=== PATIENT | female | born 1950 | race Caucasian/White ===

== ENCOUNTER 2017-12-30 05:20 | Day surgery (SDC) | payer MEDICARE, OTHER ==
[2017-12-29 09:31] LABS: HEMATOCRIT 38.6 % (36.0-48.0); MCH 30.2 pg (26.0-34.0); MCHC 33.7 g/dL (31.0-37.0); MCV 89.8 fL (80.0-100.0); MEAN PLATELET VOLUME 10.2 fL (7.4-10.4); RBC 4.3 10x6/uL (4.00-5.40); RDW 12.3 % (11.5-14.5); WBC 5.1 10x3/uL (4.8-10.8)
[~2017-12-30] VITALS: Ht 160 cm; Wt 87.1 kg
--- NOTE | ~2017-12-30 | OP ---
PATIENT NAME: BROOKE GARG MEDICAL RECORD: [id number] :54 LOCATION:D.OPS ADMISSION DATE: SURGEON: LIZA CERNA MD DATE OF OPERATION: 12/30/2017 PREOPERATIVE DIAGNOSIS: Medial meniscus tear of the right knee. POSTOPERATIVE DIAGNOSES: Medial meniscus tear of the right knee. 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 PROCEDURE: Arthroscopic partial medial meniscectomy. SURGEON: Liza Cerna MD ANESTHESIA: General. INTRAOPERATIVE COMPLICATIONS: None. SUMMARY OF PATHOLOGIC FINDINGS: Unfortunately, the patient had a nasty articular cartilage defect on the femoral side only likely caused by the meniscal tear. This was treated with a gentle chondroplasty. Intraoperative photos were taken. OPERATIVE SUMMARY IN DETAIL: After obtaining the appropriate preoperative orthopedic surgery consent as well as anesthetic consultation, evaluation, and clearance, the patient was brought to the operating room and placed on the operating table in supine position. After general laryngeal mask airway was administered, tourniquet was placed on the proximal aspect of the right lower extremity. Right lower extremity was then prepped and draped in routine sterile fashion. The leg was elevated and exsanguinated, tourniquet was inflated to 350 mmHg. Routine inferolateral portal was established followed by superior medial portal and inferomedial portal. Diagnostic arthroscopy did show the patient had the above findings. Attention was first turned to the medial meniscus tear. Combination of an arthroscopic resector along with a meniscotome was utilized to debride the posterior lateral aspect of the medial meniscus back to stable meniscal elements. There was a tear at the root, but the root was not torn from the bone. After debriding the meniscus, leaving a good portion of the meniscus intact, attention was turned to the medial femoral condylar defect. The torpedo resector was utilized to smoothen the edges and take away any loose cartilaginous flaps in attempts to make this more stable chondral defect. Again, intraoperative photos were taken using the scope. Having completed this, the knee was insufflated with 30 mL of 0.25% Marcaine with epinephrine and 80 mg of Depo-Medrol. Arthroscopy portals were closed in routine interrupted fashion using 4-0 Prolene. Sterile dressings were applied. The patient was awakened and taken to recovery room in stable condition. All final needle and sponge counts were correct. TRANSINT:[id number] Voice Confirmation ID: [id number] DOCUMENT ID: [id number] OPERATIVE REPORT [id number] BROOKE GARG MD, LIZA RAY at 1158 CC: [id number] DICTATION DATE: 12/30/17 09 FREIGHT DISPATCHER: 12/30/17 1118 [facility] 12/30/17 [place] [id number] [place] [id number]
[~2017-12-30 05:20] MED LIST: ARMOUR THYROID30 MG PO
[2017-12-30 06:21] VITALS: BP 133/61; Ht 160 cm; Wt 87.1 kg
[2017-12-30] MEDS ORDERED: HYDROCODONE-APA1 TAB PO (08:55)
== END 2017-12-30 11:00 | disposition home or self-care (01) ==
LOC: D.OPS 05:20 → D.PAN 07:30 → D.OPS 07:30
PROVIDERS: Anesthesiology
DX: S83.241A Other tear of medial meniscus, current injury, right knee, initial encounter (principal); M94.261 Chondromalacia, right knee; Z01.812 Encounter for preprocedural laboratory examination

== ENCOUNTER 2019-03-01 06:25 | Day surgery (SDC) | payer MEDICARE, OTHER ==
[2019-02-28 15:37] LABS: HEMATOCRIT 36.9 % (36.0-48.0); HEMOGLOBIN 12.8 g/dL (12-16); MCH 30.7 pg (26.0-34.0); MCHC 34.7 g/dL (31.0-37.0); MCV 88.5 fL (80.0-100.0); MEAN PLATELET VOLUME 10.4 fL (7.4-10.4); RBC 4.17 10x6/uL (4.00-5.40)
[~2019-03-01] VITALS: Ht 160 cm; Wt 87.5 kg
[~2019-03-01 06:25] MED LIST changes: +ADVIL200 MG PO; +CO Q-10100 MG PO; +HYDROCODONE-APA1 TAB PO; +IODINE; +MAGNESIUM OXID250 MG; +VITAMIN C500 M1 PO; +VITAMIN D5000 UNIT PO
[2019-03-01 07:46] VITALS: BP 111/60; Ht 160 cm; Wt 87.5 kg
[2019-03-01] MEDS ORDERED: HYDROCODON-ACE1 EA10 PO (09:13)
--- NOTE | 2019-03-02 09:01 | OP ---
PATIENT NAME: BROOKE GARG MEDICAL RECORD: [id number] :54 LOCATION:D.OPS ADMISSION DATE: SURGEON: LIZA CERNA MD DATE OF OPERATION: 03/01/2019 PREOPERATIVE DIAGNOSIS: Medial meniscus tear of the left knee. POSTOPERATIVE DIAGNOSIS: Medial meniscus tear of the left knee. PROCEDURE: Arthroscopic partial medial meniscectomy of the left knee. SURGEON: Liza Cerna MD RIM FIRE PRIMING OPERATOR: Eric Oneal. INTRAOPERATIVE COMPLICATIONS: None. SUMMARY OF PATHOLOGIC FINDINGS: The patient was indeed found to have complex tear of the posterior horn of the medial meniscus consistent with the preoperative MRI of the patient symptoms. OPERATIVE SUMMARY IN DETAIL: After obtaining the appropriate preoperative orthopedic surgery consent as well as anesthetic consultation, evaluation, and clearance, the patient was brought to the operating room and placed on the operating table in the supine position. After adequate general laryngeal mask airway was administered, a tourniquet was placed about the proximal aspect of the left lower extremity. The left lower extremity was then prepped and draped in routine sterile fashion. At the point, the appropriate preoperative time-out was done indicating the appropriate location, patient identifiers, medications and allergies. All was agreed upon by the operative suite. The leg was then elevated, exsanguinated, and the tourniquet was inflated to 350 mmHg. Routine inferolateral portal was established followed by superomedial portal and inferomedial portal. Diagnostic arthroscopy did reveal the patient to have complex tear of the posterior horn of the medial meniscus. A combination of meniscotomes as well as a 3.5 full radius resector was utilized to debride the meniscus back to stable meniscal elements with excellent retained meniscus. Having completed this, the knee was insufflated with 30 cc of 0.25% Marcaine with epinephrine and 80 mg of Depo-Medrol. Arthroscopy portals were closed in routine interrupted fashion using 4-0 Prolene. Sterile dressings were applied. Tourniquet was deflated. The patient was awakened and taken to the recovery room in stable condition. All final needle and sponge counts were correct. TRANSINT:[id number] Voice Confirmation ID: [id number] DOCUMENT ID: [id number] LIZA CERNA MD at 0901 CC: [id number] DICTATION DATE: 03/01/19909 ICE SCRAPER: 03/01/19 1119 DEP SDC 03/01/19 [facility] [address] [place] [address]
== END 2019-03-01 11:30 | disposition home or self-care (01) ==
LOC: D.OPS 06:25 → D.PAN 09:45 → D.OPS 11:30 → D.PAN 13:15 → D.OPS 15:15
PROVIDERS: Anesthesiology; ATTEND Orthopaedic Surgery
DX: S83.232A Complex tear of medial meniscus, current injury, left knee, initial encounter (principal); Z01.812 Encounter for preprocedural laboratory examination